=== PATIENT | female | born 1970 | race American Indian/Alaskan Native ===

== ENCOUNTER 2018-02-17 03:04 | Emergency (ER) | payer MEDICAID ==
[2018-02-17 03:05] VITALS: BMI 19.6
[2018-02-17 03:12] VITALS: O2SAT 98
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
[2018-02-17 05:42] VITALS: BP 141/86; PULSE 88; RESP 17; TEMP 98.1
--- NOTE | 2018-02-17 07:58 | RAD ---
PROCEDURE: Right Hand Radiographs. HISTORY: hand pain COMPARISON: None. FINDINGS: BONES: Normal. No fracture. JOINTS: Normal. No osteoarthritic changes. SOFT TISSUES: Normal. OTHER FINDINGS: None. IMPRESSION: Normal right hand radiographs.
== END 2018-02-17 05:38 | disposition home or self-care (01) ==
LOC: H.ER 03:04
DX: S60.221A Contusion of right hand, initial encounter (principal); W19.XXXA Unspecified fall, initial encounter; Y92.89 Other specified places as the place of occurrence of the external cause